=== PATIENT | male | born 1980 | race Caucasian/White ===

== ENCOUNTER 2018-01-06 11:42 | Inpatient (IN) | payer MEDICAID, SELFPAY ==
[2018-01-06] VITALS (13 sets, daily range): BP systolic 92–126; BP diastolic 56–81; BMI 39.5
[~2018-01-06] VITALS: Ht 182.9 cm; Wt 132.0 kg
--- NOTE | ~2018-01-06 | OP ---
PATIENT NAME: ZAC BHARDWAJ MEDICAL RECORD: [id number] :82 LOCATION:D.MS Doran2238 ADMISSION DATE:01/06/18 SURGEON: CASTILLO BAÑUELOS MD DATE OF OPERATION: 01/11/2018 PREOPERATIVE DIAGNOSES: 1. Perforated diverticulitis with abscess. 2. Hypercholesterolemia. 3. Morbid obesity. POSTOPERATIVE DIAGNOSES: 1. Perforated diverticulitis with abscess. 2. Hypercholesterolemia. 3. Morbid obesity. PROCEDURE: Diagnostic laparoscopy with drainage of interloop abscess and abdominal washout. SURGEON: Castillo Bañuelos MD DRESSMAKER OR TAILOR: Genie Boston APRN REPORT OF OPERATION: The patient's abdomen was prepped and draped in sterile fashion. A Veress needle was inserted in the left upper quadrant and the abdomen was insufflated. A 5-mm Visiport trocar was inserted in the right lateral abdomen. Once inside, we could see there were lot of adhesions present. Most of these were acute inflammatory adhesions, but there were some chronic adhesions to the anterior abdominal wall to a previous hernia repair with mesh. Another 5-mm trocar was placed in the right lower quadrant. With this, we were able to start teasing down some of these inflammatory adhesions. The adhesions were of the small bowel and the omentum up to the anterior abdominal wall. As we were able to free up these adhesions, we placed another 5-mm trocar in the right upper quadrant and a final one in the left lower quadrant. With this, we were able to eventually takedown all of the adhesions to the anterior abdominal wall. We then rolled back the omentum and started dissecting the small bowel off of the patient's left pericolic gutter. With doing this, we ran into a couple of pockets of pus. These pockets were irrigated out with normal saline. Once the pockets were cleaned out, then we freed up any adhesions of the small bowel that was present until we had good mobile small bowel and good mobile left and sigmoid colon. There were a lot of inflammatory changes to the bowel and a portion of the proximal small bowel was adherent to the abscess wall in the way that was making partial small bowel obstruction. This was freed up and laid in more anatomic position. We then approached the patient's pelvis and ran into another small pocket of abscess. This was irrigated out and some of the abscess wall was removed. Once we had everything irrigated out and reinspected the area to make sure there was no sign of any bile leakage, then the patient had an NG tube placed with large return of bilious content. The 15-Persian fluted Minh drains were inserted through the right and left lower quadrant incisions and placed in the pericolic gutters and pelvis. These were sutured into place with 2-0 Prolenes. At this point, the ports and insufflation were then removed after the omentum had been laid back down over the abdominal cavity. The wounds were then irrigated out with normal saline and infused with 10 mL of 0.25% Marcaine with epinephrine. The skin incisions were all closed with subcutaneous 5-0 Monocryl and dressed appropriately. OPERATIVE REPORT [id number] ZAC BHARDWAJ COMPLICATIONS: None. CONDITION: Stable. ANESTHESIA: General endotracheal and local. BLOOD LOSS: 100 mL. TRANSINT:[id number] Voice Confirmation ID: [id number] DOCUMENT ID: [id number] CASTILLO BAÑUELOS MD at 0914 CC: [id number] DICTATION DATE: 01/11/18 1519 RAIL DETECTOR CAR OPERATOR: 01/11/18 1629 ADM IN [facility] [address] [place] [address]
--- NOTE | ~2018-01-06 | MORECARE ---
CASE MANAGEMENT DISCHARGE SUMMARY PATIENT: ZAC BHARDWAJ UNIT: [id number] ADM DATE: 01/06/18 AGE: 37 : [birth year] SEX: M ROOM/BED: D.2238 AUTHOR: JAIDENDOC PHYSICIAN: REFERRING PHYSICIAN: FELI BAÑUELOS MD DATE OF SERVICE: 01/25/18 Discharge Plan Patient Name: ZAC BHARDWAJ Facility: [facility]:[place] : 1980 Planned Disposition: Acute Care Hospital Anticipated Discharge Date: Discharge Date: Expected LOS: Initial Reviewer: [email or web address] Initial Review Date: 01/06/2018 Generated: 01/25/18 1:06 pm Comments DCP- Discharge Planning Updated by [email or web address]: Debo Matt on 01/25/18 11:[address] Patient Name: ZAC BHARDWAJ Admission Status: ER Accout number: [id number] Admission Date: 01-06-2018 : 1980 Admission Diagnosis:DVTRCLI OF LG INT W/O PERFORATION OR ABSCESS W/O BLEEDI Attending: FELI BAÑUELOS Current LOS: 19 Anticipated DC Date: Planned Disposition: Acute Care Hospital Primary [facility] [employer] [facility] Discharge Planning Comments: [facility] IN PHARMACY GAVE PERMISSION TO DISPENSE 28 FLUSHES TO PATIENT AT DISCHARGE IN ORDER TO FLUSH DRAIN. 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 NO OTHER NEEDS NOTED. CM WILL FOLLOW AND ASSIST NEEDED. Compressor Assembler: Debo Matt DCP- Discharge Planning Updated by [id number]: Kusum Chiang on 01/11/18 8:[address] Dr. Bañuelos and he states that [facility] did not accept his transfer. CM will continue to follow and assist with discharge planning/needs. DCP- Discharge Planning Updated by [id number]: Kusum Chiang on 01/10/18 3:[address] Patient Name: ZAC BHARDWAJ Admission Status: ER Accout number: [id number] Admission Date: 01-06-2018 : 1980 Admission Diagnosis:DVTRCLI OF LG INT W/O PERFORATION OR ABSCESS W/O BLEEDI Attending: EDDA, EPISCOPAL Current LOS: 4 Anticipated DC Date: Planned Disposition: Acute Care Hospital [facility] [place] Discharge Planning Comments: Met with patient per his and his fianc?e's request. States he was at [facility] for the last 30 days for alcohol rehab. States he was at the end of his 30 days when he became sick and came to the hospital. States he wants to go to [facility] in [facility] to his surgeon, Dr. Ugarte. States he wants to be transferred. I read him the note from the ER doctor and also the note from Dr. Bañuelos concerning this matter. Nidia, fijett?e, states they have already talked to Dr. Ugarte in [facility] and he is willing to accept him. I did explain that this is considered a lateral move and insurance may not pay for an ambulance ride or the hospital may not accept him since it is not a higher level of care. Nidia laughed and states "I've never heard of that before." States they will still like me to call Dr. Bañuelos for a transfer. Dr Bañuelos called and he states we may call transfer center and start the process. I called [facility] and spoke with Tj. I told him the specifics of [facility] in [facility] ([place]) and to Dr. Ugarte. Face sheet faxed to them. CM will continue to follow and assist with discharge planning/needs. Compressor Assembler: Kusum Chiang DCP- Discharge Planning Updated by [email or web address]: Adrienne Dennison on 01/09/18 7:[address] LATE ENTRY 4336 PRIMARY NURSE ADVISED CM THAT THE PATIENT WANTS TO BE TRANSFERED TO [facility] IN [place]. HIS SURGEON WHO HAS FOLLOWED HIM SINCE 1999 IS AT THAT SITE. NURSE STATES DR BAÑUELOS SPOKE WITH THE PATIENT AND HIS FAMILY AND IS AWARE OF REQUEST. NO ORDERS TO FACILITATE TRANSFER. CM AND PRIMARY NURSE VISITED WITH THE PATIENT. NO FAMILY IS AT THE BEDSIDE. PATIENT CONFIRMS THAT IS HIS REQUEST. DR UGARTE HAS FOLLOWED HIM AND PERFORMED HIS PREVIOUS SURGERIES. DR BAÑUELOS WOULD LIKE TO SEE IF HE STABLIZE THE PATIENT TO DISCHARGE HIM TO F/U WITH HIS MD. PCP- DR MYRICK SURGEON- DR UGARTE. HIS ABDOMEN IS QUITE DISTENDED. PAIN CONTROL IS AN ISSUE. HAS NASAL O2 AT 2/L WITH O2 SATS IN LOW 90'S. NOTED INCREASED HR 9/29 AND 01/09. TELEMETRY MONITORING. EKG. REPORTEDLY NO BM'S NO FLATUS. SEEMED A LITTLE RESTLESS/ ANXIOUS. ADVISED HIM CM WOULD FOLLOW TO ASSIST. DCPIA - Discharge Planning Initial Assessment Updated by [email or web address]: Kusumkenneth Chiang on 01/10/18 4:29 pm * Is the patient Alert and Oriented? Yes * PCP Dr. Rowe is PCP Dr. Ugarte is surgeon * Preadmission Environment Acute Inpatient Rehab * Facility Name [facility] [phone] * ADLs Independent * Equipment Other * List name and contact numbers for known caregivers / representatives who currently or will assist patient after discharge: Nidia siddiqui?e - [phone] * Verbal permission to speak to the caregivers and representatives has been obtained from the patient. Yes * Community resources currently utilized None * Additional services required to return to the preadmission environment? No * Can the patient safely return to the preadmission environment? Yes * Has this patient been hospitalized within the prior 30 days at any hospital? No Last DP export: 01/11/18 8:14 a Patient Name: ZAC BHARDWAJ Page 40056 at 1206 All edits/amendments must be made on the electronic document DICTATION DATE: 01/25/181204 PAPER SALES MANAGER: JASON 01/25/181204 RPT#: [id number] DC DATE: STATUS: ADM IN [facility] [address] [place] [address] END OF REPORT
--- NOTE | ~2018-01-06 | MORECARE ---
CASE MANAGEMENT DISCHARGE SUMMARY PATIENT: ZAC BHARDWAJ UNIT: [id number] ADM DATE: 01/06/18 AGE: 37 : [birth year] SEX: M ROOM/BED: D.2238 AUTHOR: JAIDENDOC PHYSICIAN: REFERRING PHYSICIAN: FELI BAÑUELOS MD DATE OF SERVICE: 01/27/18 Discharge Plan Patient Name: ZAC BHARDWAJ Facility: [facility]:[place] : 1980 Planned Disposition: Home Anticipated Discharge Date: 01/25/18 Discharge Date: 01/25/2018 Expected LOS: 19 Initial Reviewer: [email or web address] Initial Review Date: 01/06/2018 Generated: 01/27/18 4:38 pm Comments DCP- Discharge Planning Updated by [email or web address]: Debo Matt on 01/25/18 11:[address] Patient Name: ZAC BHARDWAJ Admission Status: ER Accout number: [id number] Admission Date: 01-06-2018 : 1980 Admission Diagnosis:DVTRCLI OF LG INT W/O PERFORATION OR ABSCESS W/O BLEEDI Attending: FELI BAÑUELOS Current LOS: 19 Anticipated DC Date: Planned Disposition: Acute Care Hospital Primary Insurance: [facility] OPTIONS [facility] Discharge Planning Comments: [facility] IN PH[facility]ACY GAVE PERMISSION TO DISPENSE 28 FLUSHES TO PATIENT AT DISCHARGE IN ORDER TO FLUSH DRAIN. 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 NO OTHER NEEDS NOTED. CM WILL FOLLOW AND ASSIST NEEDED. Process Control Engineer: Debo Matt DCP- Discharge Planning Updated by [email or web address]: Kusum Chiang on 01/11/18 8:[address]. Bañuelos and he states that [facility] did not accept his transfer. CM will continue to follow and assist with discharge planning/needs. DCP- Discharge Planning Updated by [email or web address]: Kusum Chiang on 01/10/18 3:[address] Patient Name: ZAC BHARDWAJ Admission Status: ER Accout number: [id number] Admission Date: 01-06-2018 : 1980 Admission Diagnosis:DVTRCLI OF LG INT W/O PERFORATION OR ABSCESS W/O BLEEDI Attending: FELI BAÑUELOS Current LOS: 4 Anticipated DC Date: Planned Disposition: Acute Care Hospital [facility] [place] Discharge Planning Comments: Met with patient per his and his fianc?e's request. States he was at [facility] for the last 30 days for alcohol rehab. States he was at the end of his 30 days when he became sick and came to the hospital. States he wants to go to [facility] in [facility] to his surgeon, Dr. Ugarte. States he wants to be transferred. I read him the note from the ER doctor and also the note from Dr. Bañuelos concerning this matter. Nidia, fijett?e, states they have already talked to Dr. Ugarte in [facility] and he is willing to accept him. I did explain that this is considered a lateral move and insurance may not pay for an ambulance ride or the hospital may not accept him since it is not a higher level of care. Nidia laughed and states "I've never heard of that before." States they will still like me to call Dr. Bañuelos for a transfer. Dr Bañuelos called and he states we may call transfer center and start the process. I called [facility] and spoke with Tj. I told him the specifics of [facility] in [facility] ([place]) and to Dr. Ugarte. Face sheet faxed to them. CM will continue to follow and assist with discharge planning/needs. Process Control Engineer: Kusum Chiang DCP- Discharge Planning Updated by [id number]: Adrienne Dennison on 01/09/18 7:[address] LATE ENTRY 8097 PRIMARY NURSE ADVISED CM THAT THE PATIENT WANTS TO BE TRANSFERED TO [facility] IN [place]. HIS SURGEON WHO HAS FOLLOWED HIM SINCE 1999 IS AT THAT SITE. NURSE STATES DR BAÑUELOS SPOKE WITH THE PATIENT AND HIS FAMILY AND IS AWARE OF REQUEST. NO ORDERS TO FACILITATE TRANSFER. CM AND PRIMARY NURSE VISITED WITH THE PATIENT. NO FAMILY IS AT THE BEDSIDE. PATIENT CONFIRMS THAT IS HIS REQUEST. DR UGARTE HAS FOLLOWED HIM AND PERFORMED HIS PREVIOUS SURGERIES. DR BAÑUELOS WOULD LIKE TO SEE IF HE STABLIZE THE PATIENT TO DISCHARGE HIM TO F/U WITH HIS MD. PCP- DR MYRICK SURGEON- DR UGARTE. HIS ABDOMEN IS QUITE DISTENDED. PAIN CONTROL IS AN ISSUE. HAS NASAL O2 AT 2/L WITH O2 SATS IN LOW 90'S. NOTED INCREASED HR 01/08 AND 01/09. TELEMETRY MONITORING. EKG. REPORTEDLY NO BM'S NO FLATUS. SEEMED A LITTLE RESTLESS/ ANXIOUS. ADVISED HIM CM WOULD FOLLOW TO ASSIST. DCPIA - Discharge Planning Initial Assessment Updated by [email or web address]: Kusum Champagnejes on 01/10/18 4:29 pm * Is the patient Alert and Oriented? Yes * PCP Dr. Rowe is PCP Dr. Ugarte is surgeon * Preadmission Environment Acute Inpatient Rehab * Facility Name [facility] [phone] * ADLs Independent * Equipment Other * List name and contact numbers for known caregivers / representatives who currently or will assist patient after discharge: Nidia siddiqui?e - [phone] * Verbal permission to speak to the caregivers and representatives has been obtained from the patient. Yes * Community resources currently utilized None * Additional services required to return to the preadmission environment? No * Can the patient safely return to the preadmission environment? Yes * Has this patient been hospitalized within the prior 30 days at any hospital? No Last DP export: 01/25/18 11:06 Patient Name: ZAC BHARDWAJ Page 47397 at 1538 All edits/amendments must be made on the electronic document DICTATION DATE: 01/27/181537 PUTTY GLAZER: JASON 01/27/181537 RPT#: [id number] DC DATE:01/25/18 STATUS: DIS IN [facility] [address] [place] [address] END OF REPORT
--- NOTE | ~2018-01-06 | HEMODYNAMI ---
PATIENT:ZAC BHARDWAJ MEDICAL RECORD: [id number] : [birth year] LOCATION:AndreeaKS D.2238 ADMISSION DATE: 01/06/18 Generatedon:01/24/201810:35 Patient name: ZAC BHARDWAJ Patient #: [id number] SSN: : 1980 Date of study: 01/24/2018 Page: Of Hemodynamic Procedure Report Patient Data Patient Demographics Procedure consent was obtained First Name: ZAC Gender: Male Last Name: [place] : 1980 Patient #: [id number] Age: 37 year(s) Race: Unknown Additional ID: [id number] Contact details Address: [address] [place] [address] RO[address] State: [place] City: [place] Zip code: [address] Past Medical History Allergies Allergen Reaction Date Comments Reported Natural rubber 01/24/2018 and latex Admission Admission Data Admission Date: 01/06/2018 Admission Time: 14:43 Room #: D.2238 Height (in.): 72 BSA: 2.49 (m2) Height (cm.): 182.88 BMI: 39.33 (kg/m2) Weight (lbs.): 290 Weight (kg.): 131.54 Procedure Procedure Types Cath Procedure Peripheral Cath Diagnostic Procedure Service Advisor Peripheral Procedures Abscess Abscess Drain Injection Procedure Description Procedure Date Procedure Date: 01/24/2018 Procedure Start Time: 10:27 Procedure Staff Name Function Leobardo Chapman MD Performing Physician Sara Salmon RT Cat Hooker Meseret Soni RN Nurse Juan Carlos Wilburn RT Scrub Procedure Data Cath Procedure Fluoroscopy Diagnostic fluoroscopy Total fluoroscopy Time: 0.8 time: 0.8 min min Diagnostic fluoroscopy Total fluoroscopy dose: 210 dose: 210 mGy mGy Contrast Material Contrast Material Type Amount (ml) Isovue 300 20 Hemodynamics Rest BSA: 2.49 (m2) O2 Consumption: Estimated: 338.64 (ml/min) O2 Consumption indexed : Estimated:136 (ml/min/m) Pre Cath Intra NCS Post Cath Procedure Log Time Note 9:31:58 Patient Height : 72 inches 9:32:04 Patient Weight : 290 lbs 10:08:33 Time tracking: Regular hours (M-F 7:00 - 5:00) 10:09:00 Plan of Care:Hemodynamics will remain stable., Cardiac rhythm will remain stable., Comfort level will be maintained., Respiratory function will remain adequate., Patient/ family verbilizes understanding of procedure., Procedure tolerated without complication., Recovers from procedure without complications.. 10:09:12 Patient received from Med/Surg to IR Alert and oriented. Tansferred to table in Supine position. 10:09:18 Signed procedure consent form obtained from patient. 10:09:24 H&P Date Dictated: 01/24/2018 Within 30 days and on chart.. 10::26 Pre-procedure instructions explained to patient. 10::27 Pre-op teaching completed and patient verbalized understanding. 10:09:29 Family unavailable. 10:09:32 Patient NPO since Midnight. 10:10:19 Patient allergic to Natural rubber and latex 10:10:24 Is the patient allergic to Iodine/contrast media? No. 10:10:28 - 10:10:36 Use device set IR Diagnostic 10:10:39 Sterile Angiographic Pack opened to sterile field. 10:10:40 Bag Decanter (2002) opened to sterile field. 10:26:06 - 10:26:12 Physician arrived 10:26:33 --------ALL STOP TIME OUT------ 10:26:34 Final Timeout: patient, procedure, and site verified with staff and physician. All members of the team are in agreement. 10:27:06 Procedure started. 10:27:07 Full Disclosure recording started 10:32:45 Procedure ended.(Physican Out) 10:34:41 Fluoroscopy time 00.80 minutes. 10:34:46 Fluoroscopy dose: 210 mGy 10:34:46 Flurop Dose total: 210 10:34:51 Contrast amount:Isovue 300 20ml. 10:34:53 Procedure and supply charges have been captured, reviewed, submitted an d are correct. 10:34:59 Report given to Med/Surg. Device Usage Item Name Manufacture Quantity Catalog Hospital Part Current Minimal Lot# / Number Charge Number Stock Stock Serial# Code Sterile Cardinal 1 [id number] Angiographic Health Pack Bag Decanter Microtek 1 [id number] () [employer] Signature Audit Telford Stage Time Signature Unsigned Intra-Procedure 01/24/2018 Sara Salmon 10:35:28 AM RT(R) [facility] [address] [place] [address]
--- NOTE | ~2018-01-06 | MORECARE ---
CASE MANAGEMENT DISCHARGE SUMMARY PATIENT: ZAC BHARDWAJ UNIT: [id number] ADM DATE: 01/06/18 AGE: 37 : 82 SEX: M ROOM/BED: D.2238 AUTHOR: JAIDENDOC PHYSICIAN: REFERRING PHYSICIAN: FELI BAÑUELOS MD DATE OF SERVICE: 01/31/18 Discharge Plan Patient Name: ZAC BHARDWAJ Facility: [facility]:[place] : 1980 Planned Disposition: Home Anticipated Discharge Date: 01/25/18 Discharge Date: 01/25/2018 Expected LOS: 19 Initial Reviewer: [email or web address] Initial Review Date: 01/06/2018 Generated: 01/31/18 9:17 am Comments DCP- Discharge Planning Updated by [email or web address]: Debo Matt on 01/25/18 11:[address] Patient Name: ZAC BHARDWAJ Admission Status: ER Accout number: [id number] Admission Date: 01-06-2018 : 1980 Admission Diagnosis:DVTRCLI OF LG INT W/O PERFORATION OR ABSCESS W/O BLEEDI Attending: FELI BAÑUELOS Current LOS: 19 Anticipated DC Date: Planned Disposition: Acute Care Hospital Primary Insurance: [facility] [employer] [facility] OPTIONS [facility] Discharge Planning Comments: [facility] IN PHARMACY GAVE PERMISSION TO DISPENSE 28 FLUSHES TO PATIENT AT DISCHARGE IN ORDER TO FLUSH DRAIN. 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 NO OTHER NEEDS NOTED. CM WILL FOLLOW AND ASSIST NEEDED. Electric Motor Tester Assembler: Debo Matt DCP- Discharge Planning Updated by [id number]: Kusum Chiang on 01/11/18 8:[address]. Bañuelos and he states that [facility] did not accept his transfer. CM will continue to follow and assist with discharge planning/needs. DCP- Discharge Planning Updated by [email or web address]: Kusum Chiang on 01/10/18 3:[address] Patient Name: ZAC BHARDWAJ Admission Status: ER Accout number: [id number] Admission Date: 01-06-2018 : 1980 Admission Diagnosis:DVTRCLI OF LG INT W/O PERFORATION OR ABSCESS W/O BLEEDI Attending: FELI BAÑUELOS Current LOS: 4 Anticipated DC Date: Planned Disposition: Acute Care Hospital Primary Insurance: [facility] OPTIONS [facility] Discharge Planning Comments: Met with patient per his and his fianc?e's request. States he was at [facility] for the last 30 days for alcohol rehab. States he was at the end of his 30 days when he became sick and came to the hospital. States he wants to go to [facility] in [facility] to his surgeon, Dr. Ugarte. States he wants to be transferred. I read him the note from the ER doctor and also the note from Dr. Bañuelos concerning this matter. Nidia, fijett?e, states they have already talked to Dr. Ugarte in [facility] and he is willing to accept him. I did explain that this is considered a lateral move and insurance may not pay for an ambulance ride or the hospital may not accept him since it is not a higher level of care. Nidia laughed and states "I've never heard of that before." States they will still like me to call Dr. Bañuelos for a transfer. Dr Bañuelos called and he states we may call transfer center and start the process. I called [facility] and spoke with Tj. I told him the specifics of [facility] in [facility] ([place]) and to Dr. Ugarte. Face sheet faxed to them. CM will continue to follow and assist with discharge planning/needs. Electric Motor Tester Assembler: Kusum Chiang DCP- Discharge Planning Updated by [email or web address]: Adrienne Dennison on 01/09/18 7:[address] LATE ENTRY 6194 PRIMARY NURSE ADVISED CM THAT THE PATIENT WANTS TO BE TRANSFERED TO [facility] IN [place]. HIS SURGEON WHO HAS FOLLOWED HIM SINCE 1999 IS AT THAT SITE. NURSE STATES DR BAÑUELOS SPOKE WITH THE PATIENT AND HIS FAMILY AND IS AWARE OF REQUEST. NO ORDERS TO FACILITATE TRANSFER. CM AND PRIMARY NURSE VISITED WITH THE PATIENT. NO FAMILY IS AT THE BEDSIDE. PATIENT CONFIRMS THAT IS HIS REQUEST. DR UGARTE HAS FOLLOWED HIM AND PERFORMED HIS PREVIOUS SURGERIES. DR BAÑUELOS WOULD LIKE TO SEE IF HE STABLIZE THE PATIENT TO DISCHARGE HIM TO F/U WITH HIS MD. PCP- DR MYRICK SURGEON- DR UGARTE. HIS ABDOMEN IS QUITE DISTENDED. PAIN CONTROL IS AN ISSUE. HAS NASAL O2 AT 2/L WITH O2 SATS IN LOW 90'S. NOTED INCREASED HR 01/08 AND 01/09. TELEMETRY MONITORING. EKG. REPORTEDLY NO BM'S NO FLATUS. SEEMED A LITTLE RESTLESS/ ANXIOUS. ADVISED HIM CM WOULD FOLLOW TO ASSIST. DCPIA - Discharge Planning Initial Assessment Updated by [email or web address]: Kusum Champagnejes on 01/10/18 4:29 pm * Is the patient Alert and Oriented? Yes * PCP Dr. Rowe is PCP Dr. Ugarte is surgeon * Preadmission Environment Acute Inpatient Rehab * Facility Name [facility] [phone] * ADLs Independent * Equipment Other * List name and contact numbers for known caregivers / representatives who currently or will assist patient after discharge: Nidia siddiqui?e - [phone] * Verbal permission to speak to the caregivers and representatives has been obtained from the patient. Yes * Community resources currently utilized None * Additional services required to return to the preadmission environment? No * Can the patient safely return to the preadmission environment? Yes * Has this patient been hospitalized within the prior 30 days at any hospital? No Last DP export: 01/27/18 2:38 Patient Name: ZAC BHARDWAJ Page 16246 at 0817 All edits/amendments must be made on the electronic document DICTATION DATE: 01/31/18816 POULTRY SCALDER: JASON 01/31/18816 RPT#: [id number] DC DATE:01/25/18 STATUS: DIS IN [facility] [address] [place] [address] END OF REPORT
[2018-01-06] MEDS ORDERED: LIPITOR20 MG PO (11:46)
[2018-01-06] MEDS ORDERED: RANITIDINE HCL150 M1 PO (11:48)
[2018-01-06] MEDS ORDERED: ATARAX 25 MG TA25 MG PO (11:48)
[2018-01-06] MEDS ORDERED: FOLIC ACID1 MG PO (11:49)
[2018-01-06] MEDS ORDERED: SEROQUEL300 MG PO (11:49)
[2018-01-06] MEDS ORDERED: VITAMIN B-150 MG PO (11:49)
[2018-01-06] MEDS ORDERED: ZYLOPRIM300 MG PO (11:50)
[2018-01-06] MEDS ORDERED: AZELASTINE137 MCG/0. NASAL (11:51)
[2018-01-06] MEDS ORDERED: BUSPAR10 MG PO (11:51)
[2018-01-06 12:54] LABS: BASOPHILS 0 % (0-2); EOSINOPHILS 0 % (0-7); HEMATOCRIT 45.8 % (42.0-54.0); HEMOGLOBIN 16.3 g/dL (13.5-17.5); IMMATURE GRANULOCYTES 0.3 % (0-5); LYMPHOCYTES 2.8 % (15-50); MCH 33.2 pg (26.0-34.0); MCHC 35.6 g/dL (31.0-37.0); MCV 93.3 fL (80.0-100.0); MEAN PLATELET VOLUME 10.6 fL (7.4-10.4); MONOCYTES 7.7 % (2-11); NEUTROPHILS 89.2 % (40-80); PLATELET COUNT 196 10x3/uL (130-400); RBC 4.91 10x6/uL (4.20-6.10); RDW 13.1 % (11.5-14.5); WBC 11.5 10x3/uL (4.8-10.8)
[2018-01-06 13:07] LABS: ALBUMIN 3.2 g/dL (3.4-5.0); ANION GAP 16.7 mmol/L (8-16); BILIRUBIN - TOTAL 1.15 mg/dL (0.2-1.3); CARBON DIOXIDE 22.1 mmol/L (21.0-32.0); CREATININE - SERUM 1.7 mg/dL (0.6-1.3); POTASSIUM - SERUM 3.8 mmol/L (3.5-5.1); PROTEIN - SERUM 8.1 g/dL (6.4-8.2)
[2018-01-06 16:32] LABS: APPEARANCE CLEAR (CLEAR); BILIRUBIN 1+ (NEGATIVE); COLOR DK YELLOW (YELLOW); GLUCOSE NEGATIVE (NEGATIVE); KETONE NEGATIVE (NEGATIVE); NITRITE NEGATIVE (NEGATIVE); PROTEIN 1+ mg/dL (NEGATIVE); WHITE CELLS - URINE 0-5 /hpf (0-5)
[2018-01-06 16:33] LABS: BACTERIA FEW /hpf (NONE SEEN); HYALINE CAST 0-5 /lpf (NONE SEEN)
[2018-01-07 04:00] VITALS: BP 118/75
[2018-01-07 05:58] LABS: ALBUMIN 2.4 g/dL (3.4-5.0); CALCIUM 8.5 mg/dL (8.5-10.1); CARBON DIOXIDE 22.1 mmol/L (21.0-32.0); CHLORIDE - SERUM 99 mmol/L (98-107); GLUCOSE 127 mg/dL (74-106); MAGNESIUM - SERUM 1.8 mg/dL (1.8-2.4); POTASSIUM - SERUM 3.7 mmol/L (3.5-5.1); SODIUM 131 mmol/L (136-145); eGFR NON AFRICAN AMERICAN 80 mL/min (90-120)
[2018-01-07 06:04] LABS: CALC OSMOLALITY 267 mosm/kg (275-300); CREATININE - SERUM 1.1 mg/dL (0.6-1.3); UREA NITROGEN 20 mg/dL (7-18)
[2018-01-07 06:13] LABS: BASOPHILS 0.1 % (0-2); EOSINOPHILS 0.1 % (0-7); HEMATOCRIT 42.1 % (42.0-54.0); HEMOGLOBIN 14.8 g/dL (13.5-17.5); IMMATURE GRANULOCYTES 0.2 % (0-5); LYMPHOCYTES 4.4 % (15-50); MCH 32.7 pg (26.0-34.0); MCHC 35.2 g/dL (31.0-37.0); MCV 93.1 fL (80.0-100.0); MEAN PLATELET VOLUME 11.3 fL (7.4-10.4); MONOCYTES 6.6 % (2-11); NEUTROPHILS 88.6 % (40-80); PLATELET COUNT 204 10x3/uL (130-400); RBC 4.52 10x6/uL (4.20-6.10); RDW 13.1 % (11.5-14.5); WBC 9.9 10x3/uL (4.8-10.8)
[2018-01-07 06:30] LABS: ALKALINE PHOSPHATASE 65 U/L (46-116); ALT (SGPT) 18 U/L (10-68); BILIRUBIN - TOTAL 0.85 mg/dL (0.2-1.3); PHOSPHOROUS 2.7 mg/dL (2.5-4.9); PROTEIN - SERUM 6.8 g/dL (6.4-8.2)
[2018-01-07 08:15] VITALS: BP 107/67
[2018-01-07 12:25] VITALS: BMI 39.5
[2018-01-07 13:20] VITALS: BP 109/70
[2018-01-07 16:21] VITALS: BP 118/72
[2018-01-07 23:06] VITALS: BP 117/64
[2018-01-08 04:54] VITALS: BP 125/76
[2018-01-08 07:16] LABS: BASOPHILS 0 % (0-2); EOSINOPHILS 0.4 % (0-7); HEMOGLOBIN 12.3 g/dL (13.5-17.5); IMMATURE GRANULOCYTES 0.4 % (0-5); LYMPHOCYTES 5.2 % (15-50); MCH 31.9 pg (26.0-34.0); MCHC 34.2 g/dL (31.0-37.0); MCV 93.5 fL (80.0-100.0); MEAN PLATELET VOLUME 10.7 fL (7.4-10.4); PLATELET COUNT 154 10x3/uL (130-400); RBC 3.85 10x6/uL (4.20-6.10); RDW 13.4 % (11.5-14.5); WBC 8.2 10x3/uL (4.8-10.8)
[2018-01-08 07:37] LABS: CALC OSMOLALITY 269 mosm/kg (275-300); CALCIUM 8.4 mg/dL (8.5-10.1); CARBON DIOXIDE 22.8 mmol/L (21.0-32.0); CHLORIDE - SERUM 101 mmol/L (98-107); GLUCOSE 90 mg/dL (74-106); POTASSIUM - SERUM 3.4 mmol/L (3.5-5.1); SODIUM 134 mmol/L (136-145); UREA NITROGEN 19 mg/dL (7-18)
[2018-01-08 07:38] LABS: CREATININE - SERUM 0.8 mg/dL (0.6-1.3); eGFR NON AFRICAN AMERICAN > 90 mL/min (90-120)
[2018-01-08 08:28] VITALS: BP 126/73
[2018-01-08 12:09] VITALS: BP 120/70
[2018-01-08 21:47] VITALS: BP 137/83
[2018-01-09 06:13] VITALS: BP 141/79
[2018-01-09 06:28] LABS: BASOPHILS 0.1 % (0-2); EOSINOPHILS 0.6 % (0-7); HEMATOCRIT 35.3 % (42.0-54.0); IMMATURE GRANULOCYTES 0.5 % (0-5); LYMPHOCYTES 4.7 % (15-50); MCH 31.9 pg (26.0-34.0); MCV 93.9 fL (80.0-100.0); MEAN PLATELET VOLUME 10.8 fL (7.4-10.4); MONOCYTES 7.1 % (2-11); PLATELET COUNT 171 10x3/uL (130-400); RBC 3.76 10x6/uL (4.20-6.10); RDW 13.7 % (11.5-14.5)
[2018-01-09 06:30] LABS: WBC 12.9 10x3/uL (4.8-10.8)
[2018-01-09 06:44] LABS: CALC OSMOLALITY 273 mosm/kg (275-300); CALCIUM 8.6 mg/dL (8.5-10.1); CARBON DIOXIDE 25.5 mmol/L (21.0-32.0); CHLORIDE - SERUM 104 mmol/L (98-107); CREATININE - SERUM 0.7 mg/dL (0.6-1.3); GLUCOSE 109 mg/dL (74-106); POTASSIUM - SERUM 3.5 mmol/L (3.5-5.1); SODIUM 137 mmol/L (136-145); eGFR NON AFRICAN AMERICAN > 90 mL/min (90-120)
[2018-01-09 06:47] LABS: UREA NITROGEN 10 mg/dL (7-18)
[2018-01-09 08:48] VITALS: BP 131/86
[2018-01-09 15:26] VITALS: BP 150/87
[2018-01-09 22:36] VITALS: BP 124/76
[2018-01-09 22:41] VITALS: BP 124/76
[2018-01-10 03:54] VITALS: BP 120/74
[2018-01-10 06:37] LABS: BASOPHILS 0.1 % (0-2); HEMATOCRIT 34.8 % (42.0-54.0); HEMOGLOBIN 11.9 g/dL (13.5-17.5); IMMATURE GRANULOCYTES 1.3 % (0-5); LYMPHOCYTES 6.4 % (15-50); MCH 31.8 pg (26.0-34.0); MCHC 34.2 g/dL (31.0-37.0); MEAN PLATELET VOLUME 10.5 fL (7.4-10.4); NEUTROPHILS 82.2 % (40-80); PLATELET COUNT 184 10x3/uL (130-400); RBC 3.74 10x6/uL (4.20-6.10); RDW 13.9 % (11.5-14.5); WBC 13.4 10x3/uL (4.8-10.8)
[2018-01-10 06:53] LABS: CALC OSMOLALITY 277 mosm/kg (275-300); CALCIUM 8.4 mg/dL (8.5-10.1); CHLORIDE - SERUM 105 mmol/L (98-107); CREATININE - SERUM 0.6 mg/dL (0.6-1.3); GLUCOSE 106 mg/dL (74-106); POTASSIUM - SERUM 3.4 mmol/L (3.5-5.1); SODIUM 140 mmol/L (136-145); UREA NITROGEN 10 mg/dL (7-18); eGFR NON AFRICAN AMERICAN > 90 mL/min (90-120)
[2018-01-10 07:06] LABS: CARBON DIOXIDE 26.2 mmol/L (21.0-32.0)
[2018-01-10 08:08] VITALS: BP 165/84
[2018-01-10 12:12] VITALS: BP 140/87
[2018-01-10 16:30] VITALS: BP 130/72
[2018-01-10 20:00] VITALS: BP 138/54
[2018-01-11 04:00] VITALS: BP 112/68
[2018-01-11 05:17] LABS: BASOPHILS 0.2 % (0-2); EOSINOPHILS 0.8 % (0-7); HEMATOCRIT 34.7 % (42.0-54.0); IMMATURE GRANULOCYTES 1.9 % (0-5); LYMPHOCYTES 7.4 % (15-50); MCH 32.2 pg (26.0-34.0); MCHC 34.6 g/dL (31.0-37.0); MEAN PLATELET VOLUME 10.5 fL (7.4-10.4); MONOCYTES 8.8 % (2-11); NEUTROPHILS 80.9 % (40-80); PLATELET COUNT 211 10x3/uL (130-400); RBC 3.73 10x6/uL (4.20-6.10); WBC 16.3 10x3/uL (4.8-10.8)
[2018-01-11 05:33] LABS: CALC OSMOLALITY 276 mosm/kg (275-300); CALCIUM 8.3 mg/dL (8.5-10.1); CARBON DIOXIDE 28.8 mmol/L (21.0-32.0); CHLORIDE - SERUM 104 mmol/L (98-107); CREATININE - SERUM 0.6 mg/dL (0.6-1.3); GLUCOSE 103 mg/dL (74-106); POTASSIUM - SERUM 3.3 mmol/L (3.5-5.1); SODIUM 140 mmol/L (136-145); eGFR NON AFRICAN AMERICAN > 90 mL/min (90-120)
[2018-01-11 05:35] LABS: UREA NITROGEN 7 mg/dL (7-18)
[2018-01-11 09:39] VITALS: BP 113/71
[2018-01-11 16:49] VITALS: BP 140/83
[2018-01-11 20:00] VITALS: BP 105/62
[2018-01-12] VITALS: BP 107/74
[2018-01-12 04:00] VITALS: BP 126/76
[2018-01-12 07:55] LABS: CALC OSMOLALITY 276 mosm/kg (275-300); CALCIUM 7.6 mg/dL (8.5-10.1); CARBON DIOXIDE 22.3 mmol/L (21.0-32.0); CHLORIDE - SERUM 106 mmol/L (98-107); CREATININE - SERUM 0.5 mg/dL (0.6-1.3); GLUCOSE 127 mg/dL (74-106); POTASSIUM - SERUM 4.4 mmol/L (3.5-5.1); SODIUM 138 mmol/L (136-145); UREA NITROGEN 10 mg/dL (7-18); eGFR NON AFRICAN AMERICAN > 90 mL/min (90-120)
[2018-01-12 07:57] LABS: HEMATOCRIT 37.9 % (42.0-54.0); HEMOGLOBIN 13.3 g/dL (13.5-17.5); LYMPHOCYTES 7.1 % (15-50); MCH 32.7 pg (26.0-34.0); MCHC 35.1 g/dL (31.0-37.0); MCV 93.1 fL (80.0-100.0); NEUTROPHILS 87.1 % (40-80); PLATELET COUNT 105 10x3/uL (130-400); RBC 4.07 10x6/uL (4.20-6.10); RDW 15.2 % (11.5-14.5); WBC 19.8 10x3/uL (4.8-10.8)
[2018-01-12 08:46] VITALS: BP 110/68
[2018-01-12 12:48] VITALS: BP 117/73
[2018-01-12 16:45] VITALS: BP 108/69
[2018-01-13 06:18] VITALS: BP 112/64
[2018-01-13 06:28] LABS: BASOPHILS 0.1 % (0-2); EOSINOPHILS 0.9 % (0-7); HEMATOCRIT 36.5 % (42.0-54.0); HEMOGLOBIN 12.4 g/dL (13.5-17.5); IMMATURE GRANULOCYTES 1.7 % (0-5); LYMPHOCYTES 7.6 % (15-50); MCV 94.1 fL (80.0-100.0); MEAN PLATELET VOLUME 10.1 fL (7.4-10.4); MONOCYTES 4.7 % (2-11); RBC 3.88 10x6/uL (4.20-6.10); RDW 14.3 % (11.5-14.5); WBC 19.8 10x3/uL (4.8-10.8)
[2018-01-13 06:39] LABS: PLATELET COUNT 284 10x3/uL (130-400)
[2018-01-13 06:59] LABS: CHLORIDE - SERUM 103 mmol/L (98-107); CREATININE - SERUM 0.6 mg/dL (0.6-1.3); GLUCOSE 93 mg/dL (74-106); SODIUM 140 mmol/L (136-145); eGFR NON AFRICAN AMERICAN > 90 mL/min (90-120)
[2018-01-13 07:02] LABS: CALC OSMOLALITY 276 mosm/kg (275-300); CARBON DIOXIDE 30.8 mmol/L (21.0-32.0); POTASSIUM - SERUM 3.3 mmol/L (3.5-5.1); UREA NITROGEN 7 mg/dL (7-18)
[2018-01-13 08:00] VITALS: BP 112/69
[2018-01-13 12:00] VITALS: BP 108/67
[2018-01-13 18:19] VITALS: BP 122/74
[2018-01-13 21:45] VITALS: BP 117/71
[2018-01-14 05:09] VITALS: BP 119/72
[2018-01-14 06:25] LABS: CALC OSMOLALITY 269 mosm/kg (275-300); CALCIUM 7.9 mg/dL (8.5-10.1); CARBON DIOXIDE 27.2 mmol/L (21.0-32.0); CHLORIDE - SERUM 102 mmol/L (98-107); CREATININE - SERUM 0.6 mg/dL (0.6-1.3); GLUCOSE 104 mg/dL (74-106); POTASSIUM - SERUM 3.5 mmol/L (3.5-5.1); SODIUM 136 mmol/L (136-145); UREA NITROGEN 7 mg/dL (7-18); eGFR NON AFRICAN AMERICAN > 90 mL/min (90-120)
[2018-01-14 06:26] LABS: HEMATOCRIT 34.7 % (42.0-54.0); HEMOGLOBIN 11.8 g/dL (13.5-17.5); MCH 31.6 pg (26.0-34.0); PLATELET COUNT 293 10x3/uL (130-400); RBC 3.73 10x6/uL (4.20-6.10); RDW 14.1 % (11.5-14.5); WBC 21.8 10x3/uL (4.8-10.8)
[2018-01-14 07:19] LABS: EOSINOPHILS 3 % (0-7); LYMPHOCYTES 4 % (15-50); MONOCYTES 6 % (2-11); NEUTROPHILS 83 % (40-80); PLATELET ESTIMATE NORMAL
[2018-01-14 08:14] VITALS: BP 104/65
[2018-01-14 11:56] VITALS: BP 122/76
[2018-01-14 20:00] VITALS: BP 122/76
[2018-01-15 04:00] VITALS: BP 121/74
[2018-01-15 05:38] LABS: BASOPHILS 0.1 % (0-2); EOSINOPHILS 0.9 % (0-7); HEMATOCRIT 35.4 % (42.0-54.0); IMMATURE GRANULOCYTES 0.9 % (0-5); LYMPHOCYTES 6.8 % (15-50); MCH 31.9 pg (26.0-34.0); MCHC 33.9 g/dL (31.0-37.0); MCV 94.1 fL (80.0-100.0); MEAN PLATELET VOLUME 9.8 fL (7.4-10.4); MONOCYTES 4.8 % (2-11); NEUTROPHILS 86.5 % (40-80); PLATELET COUNT 287 10x3/uL (130-400); RBC 3.76 10x6/uL (4.20-6.10); RDW 14.2 % (11.5-14.5); WBC 17.8 10x3/uL (4.8-10.8)
[2018-01-15 05:58] LABS: CALC OSMOLALITY 273 mosm/kg (275-300); CALCIUM 7.8 mg/dL (8.5-10.1); CARBON DIOXIDE 30.8 mmol/L (21.0-32.0); CHLORIDE - SERUM 101 mmol/L (98-107); CREATININE - SERUM 0.7 mg/dL (0.6-1.3); GLUCOSE 107 mg/dL (74-106); POTASSIUM - SERUM 3.9 mmol/L (3.5-5.1); SODIUM 138 mmol/L (136-145); UREA NITROGEN 7 mg/dL (7-18); eGFR NON AFRICAN AMERICAN > 90 mL/min (90-120)
[2018-01-15 19:58] VITALS: BP 102/60
[2018-01-16] VITALS: BP 129/76
[2018-01-16 02:53] LABS: BASOPHILS 0.1 % (0-2); HEMATOCRIT 32.5 % (42.0-54.0); HEMOGLOBIN 11.1 g/dL (13.5-17.5); IMMATURE GRANULOCYTES 0.8 % (0-5); LYMPHOCYTES 5.7 % (15-50); MCH 31.8 pg (26.0-34.0); MCHC 34.2 g/dL (31.0-37.0); MCV 93.1 fL (80.0-100.0); MEAN PLATELET VOLUME 10.1 fL (7.4-10.4); MONOCYTES 5.6 % (2-11); NEUTROPHILS 86.8 % (40-80); PLATELET COUNT 296 10x3/uL (130-400); RBC 3.49 10x6/uL (4.20-6.10); RDW 13.9 % (11.5-14.5); WBC 17.8 10x3/uL (4.8-10.8)
[2018-01-16 03:07] LABS: CALC OSMOLALITY 264 mosm/kg (275-300); CALCIUM 7.6 mg/dL (8.5-10.1); CARBON DIOXIDE 28.2 mmol/L (21.0-32.0); CHLORIDE - SERUM 100 mmol/L (98-107); CREATININE - SERUM 0.6 mg/dL (0.6-1.3); GLUCOSE 125 mg/dL (74-106); POTASSIUM - SERUM 3.8 mmol/L (3.5-5.1); SODIUM 133 mmol/L (136-145); UREA NITROGEN 8 mg/dL (7-18); eGFR NON AFRICAN AMERICAN > 90 mL/min (90-120)
[2018-01-16 04:00] VITALS: BP 116/76
[2018-01-16 09:42] VITALS: BP 128/72
[2018-01-16 12:00] VITALS: BP 145/80
[2018-01-16 16:00] VITALS: BP 136/74
[2018-01-16 21:11] VITALS: BP 124/70
[2018-01-17 06:04] LABS: BASOPHILS 0.1 % (0-2); EOSINOPHILS 1.6 % (0-7); HEMATOCRIT 29.7 % (42.0-54.0); IMMATURE GRANULOCYTES 0.6 % (0-5); LYMPHOCYTES 7.6 % (15-50); MCH 31.5 pg (26.0-34.0); MCHC 33.7 g/dL (31.0-37.0); MCV 93.7 fL (80.0-100.0); MEAN PLATELET VOLUME 9.9 fL (7.4-10.4); MONOCYTES 7.6 % (2-11); NEUTROPHILS 82.5 % (40-80); PLATELET COUNT 325 10x3/uL (130-400); RBC 3.17 10x6/uL (4.20-6.10); RDW 14.2 % (11.5-14.5); WBC 13.7 10x3/uL (4.8-10.8)
[2018-01-17 06:05] VITALS: BP 124/76
[2018-01-17 06:11] LABS: CALC OSMOLALITY 267 mosm/kg (275-300); CALCIUM 7.8 mg/dL (8.5-10.1); CARBON DIOXIDE 25.9 mmol/L (21.0-32.0); CHLORIDE - SERUM 100 mmol/L (98-107); CREATININE - SERUM 0.6 mg/dL (0.6-1.3); GLUCOSE 104 mg/dL (74-106); POTASSIUM - SERUM 3.9 mmol/L (3.5-5.1); SODIUM 135 mmol/L (136-145); UREA NITROGEN 7 mg/dL (7-18); eGFR NON AFRICAN AMERICAN > 90 mL/min (90-120)
[2018-01-17 08:38] VITALS: BP 115/62
[2018-01-17 12:50] VITALS: BP 152/81
[2018-01-17 16:34] VITALS: BP 152/83
[2018-01-17 21:01] VITALS: BP 112/66
[2018-01-18 05:52] VITALS: BP 126/75
[2018-01-18 05:57] LABS: BASOPHILS 0.2 % (0-2); EOSINOPHILS 1.3 % (0-7); HEMATOCRIT 28.8 % (42.0-54.0); IMMATURE GRANULOCYTES 0.4 % (0-5); LYMPHOCYTES 9.6 % (15-50); MCH 32.7 pg (26.0-34.0); MCHC 34.7 g/dL (31.0-37.0); MCV 94.1 fL (80.0-100.0); MEAN PLATELET VOLUME 9.6 fL (7.4-10.4); MONOCYTES 8.6 % (2-11); NEUTROPHILS 79.9 % (40-80); PLATELET COUNT 354 10x3/uL (130-400); RBC 3.06 10x6/uL (4.20-6.10); RDW 14.1 % (11.5-14.5); WBC 11.6 10x3/uL (4.8-10.8)
[2018-01-18 06:36] LABS: CALC OSMOLALITY 271 mosm/kg (275-300); CARBON DIOXIDE 28.5 mmol/L (21.0-32.0); CHLORIDE - SERUM 101 mmol/L (98-107); CREATININE - SERUM 0.5 mg/dL (0.6-1.3); GLUCOSE 122 mg/dL (74-106); SODIUM 137 mmol/L (136-145); eGFR NON AFRICAN AMERICAN > 90 mL/min (90-120)
[2018-01-18 06:37] LABS: UREA NITROGEN 4 mg/dL (7-18)
[2018-01-18 09:44] VITALS: BP 116/69
[2018-01-18 14:44] VITALS: BP 122/63
[2018-01-18 19:48] VITALS: Ht 182.9 cm; Wt 132.0 kg
[2018-01-18 20:24] LABS: APPEARANCE CLEAR (CLEAR); BILIRUBIN NEGATIVE (NEGATIVE); COLOR YELLOW (YELLOW); GLUCOSE NEGATIVE (NEGATIVE); KETONE NEGATIVE (NEGATIVE); NITRITE NEGATIVE (NEGATIVE); PROTEIN NEGATIVE (NEGATIVE); UROBILINOGEN NORMAL (NORMAL)
[2018-01-18 21:20] VITALS: BP 135/77
[2018-01-19 06:00] LABS: BASOPHILS 0.2 % (0-2); EOSINOPHILS 1.4 % (0-7); HEMATOCRIT 28.5 % (42.0-54.0); HEMOGLOBIN 9.5 g/dL (13.5-17.5); IMMATURE GRANULOCYTES 0.3 % (0-5); LYMPHOCYTES 11.1 % (15-50); MCH 31.7 pg (26.0-34.0); MCHC 33.3 g/dL (31.0-37.0); MEAN PLATELET VOLUME 9.9 fL (7.4-10.4); MONOCYTES 12.2 % (2-11); NEUTROPHILS 74.8 % (40-80); PLATELET COUNT 365 10x3/uL (130-400); RDW 14.2 % (11.5-14.5); WBC 11.3 10x3/uL (4.8-10.8)
[2018-01-19 06:15] LABS: CALC OSMOLALITY 270 mosm/kg (275-300); CARBON DIOXIDE 30.4 mmol/L (21.0-32.0); CHLORIDE - SERUM 101 mmol/L (98-107); CREATININE - SERUM 0.5 mg/dL (0.6-1.3); GLUCOSE 103 mg/dL (74-106); POTASSIUM - SERUM 3.7 mmol/L (3.5-5.1); SODIUM 137 mmol/L (136-145); UREA NITROGEN 3 mg/dL (7-18); eGFR NON AFRICAN AMERICAN > 90 mL/min (90-120)
[2018-01-19 06:26] VITALS: BP 115/65
[2018-01-19 09:19] VITALS: BP 120/71
[2018-01-19 09:53] LABS: APTT 37.5 SECONDS (22.8-39.4); INR 1.14 (0.85-1.17); PROTIME 14.2 SECONDS (11.6-15.0)
[2018-01-19 11:36] VITALS: BP 137/86
[2018-01-19 15:30] VITALS: BP 115/73
[2018-01-19 20:00] VITALS: BP 122/64
[2018-01-20 05:28] VITALS: BP 115/67
[2018-01-20 06:56] LABS: BASOPHILS 0.3 % (0-2); EOSINOPHILS 2.7 % (0-7); HEMATOCRIT 28.2 % (42.0-54.0); HEMOGLOBIN 9.2 g/dL (13.5-17.5); IMMATURE GRANULOCYTES 0.6 % (0-5); LYMPHOCYTES 12.6 % (15-50); MCH 31.4 pg (26.0-34.0); MCHC 32.6 g/dL (31.0-37.0); MCV 96.2 fL (80.0-100.0); MEAN PLATELET VOLUME 9.5 fL (7.4-10.4); MONOCYTES 10.3 % (2-11); NEUTROPHILS 73.5 % (40-80); PLATELET COUNT 404 10x3/uL (130-400); RBC 2.93 10x6/uL (4.20-6.10); RDW 13.9 % (11.5-14.5)
[2018-01-20 07:09] LABS: CARBON DIOXIDE 27.6 mmol/L (21.0-32.0); CHLORIDE - SERUM 103 mmol/L (98-107); GLUCOSE 119 mg/dL (74-106); POTASSIUM - SERUM 3.5 mmol/L (3.5-5.1); SODIUM 140 mmol/L (136-145)
[2018-01-20 07:10] LABS: CALC OSMOLALITY 275 mosm/kg (275-300); CREATININE - SERUM 0.7 mg/dL (0.6-1.3); UREA NITROGEN 2 mg/dL (7-18); eGFR NON AFRICAN AMERICAN > 90 mL/min (90-120)
[2018-01-20 10:20] VITALS: BP 138/68
[2018-01-20 15:20] VITALS: BP 132/79
[2018-01-20 21:37] VITALS: BP 124/70
[2018-01-21] VITALS: BP 117/66
[2018-01-21 05:42] LABS: BASOPHILS 0.2 % (0-2); EOSINOPHILS 3.1 % (0-7); HEMATOCRIT 27.7 % (42.0-54.0); IMMATURE GRANULOCYTES 0.6 % (0-5); LYMPHOCYTES 14.7 % (15-50); MCH 31.3 pg (26.0-34.0); MCHC 32.5 g/dL (31.0-37.0); MCV 96.2 fL (80.0-100.0); MEAN PLATELET VOLUME 9.7 fL (7.4-10.4); MONOCYTES 11.6 % (2-11); NEUTROPHILS 69.8 % (40-80); PLATELET COUNT 403 10x3/uL (130-400); RBC 2.88 10x6/uL (4.20-6.10); RDW 14.1 % (11.5-14.5); WBC 8.1 10x3/uL (4.8-10.8)
[2018-01-21 05:51] LABS: CALC OSMOLALITY 267 mosm/kg (275-300); CALCIUM 7.9 mg/dL (8.5-10.1); CARBON DIOXIDE 29.5 mmol/L (21.0-32.0); CHLORIDE - SERUM 101 mmol/L (98-107); CREATININE - SERUM 0.7 mg/dL (0.6-1.3); GLUCOSE 93 mg/dL (74-106); POTASSIUM - SERUM 3.4 mmol/L (3.5-5.1); SODIUM 136 mmol/L (136-145); UREA NITROGEN 2 mg/dL (7-18); eGFR NON AFRICAN AMERICAN > 90 mL/min (90-120)
[2018-01-21 06:08] VITALS: BP 116/68
[2018-01-21 08:06] VITALS: BP 126/72
[2018-01-21 12:52] VITALS: BP 112/66
[2018-01-21 17:20] VITALS: BP 107/66
[2018-01-21 20:56] VITALS: BP 118/65
[2018-01-22 00:51] VITALS: BP 118/58
[2018-01-22 05:09] VITALS: BP 129/65
[2018-01-22 05:19] LABS: BASOPHILS 0.3 % (0-2); EOSINOPHILS 3.2 % (0-7); HEMATOCRIT 28.4 % (42.0-54.0); HEMOGLOBIN 9.3 g/dL (13.5-17.5); IMMATURE GRANULOCYTES 0.7 % (0-5); LYMPHOCYTES 18.3 % (15-50); MCH 31.1 pg (26.0-34.0); MCHC 32.7 g/dL (31.0-37.0); MEAN PLATELET VOLUME 9.4 fL (7.4-10.4); MONOCYTES 13.8 % (2-11); NEUTROPHILS 63.7 % (40-80); PLATELET COUNT 390 10x3/uL (130-400); RBC 2.99 10x6/uL (4.20-6.10); RDW 14.1 % (11.5-14.5); WBC 7.5 10x3/uL (4.8-10.8)
[2018-01-22 05:34] LABS: CALC OSMOLALITY 275 mosm/kg (275-300); CALCIUM 7.9 mg/dL (8.5-10.1); CARBON DIOXIDE 32.2 mmol/L (21.0-32.0); CHLORIDE - SERUM 103 mmol/L (98-107); CREATININE - SERUM 0.7 mg/dL (0.6-1.3); GLUCOSE 101 mg/dL (74-106); POTASSIUM - SERUM 3.5 mmol/L (3.5-5.1); SODIUM 140 mmol/L (136-145); eGFR NON AFRICAN AMERICAN > 90 mL/min (90-120)
[2018-01-22 05:55] LABS: UREA NITROGEN 3 mg/dL (7-18)
[2018-01-22 12:49] VITALS: BP 122/72
[2018-01-22 17:47] VITALS: BP 122/69
[2018-01-22 20:50] VITALS: BP 127/72
[2018-01-23 05:27] VITALS: BP 102/64
[2018-01-23 05:49] LABS: BASOPHILS 0.1 % (0-2); EOSINOPHILS 3.5 % (0-7); HEMATOCRIT 28.5 % (42.0-54.0); HEMOGLOBIN 9.2 g/dL (13.5-17.5); IMMATURE GRANULOCYTES 0.9 % (0-5); LYMPHOCYTES 15.7 % (15-50); MCH 30.8 pg (26.0-34.0); MCHC 32.3 g/dL (31.0-37.0); MCV 95.3 fL (80.0-100.0); MEAN PLATELET VOLUME 9.2 fL (7.4-10.4); MONOCYTES 13.4 % (2-11); NEUTROPHILS 66.4 % (40-80); PLATELET COUNT 379 10x3/uL (130-400); RBC 2.99 10x6/uL (4.20-6.10); RDW 13.8 % (11.5-14.5); WBC 6.9 10x3/uL (4.8-10.8)
[2018-01-23 06:13] LABS: CALC OSMOLALITY 281 mosm/kg (275-300); CARBON DIOXIDE 32.5 mmol/L (21.0-32.0); CHLORIDE - SERUM 105 mmol/L (98-107); CREATININE - SERUM 0.6 mg/dL (0.6-1.3); GLUCOSE 97 mg/dL (74-106); POTASSIUM - SERUM 3.2 mmol/L (3.5-5.1); SODIUM 143 mmol/L (136-145); eGFR NON AFRICAN AMERICAN > 90 mL/min (90-120)
[2018-01-23 06:14] LABS: UREA NITROGEN 4 mg/dL (7-18)
[2018-01-23 12:37] VITALS: BP 104/69
[2018-01-23 17:10] VITALS: BP 133/71
[2018-01-23 22:54] VITALS: BP 119/60
[2018-01-24 05:09] VITALS: BP 110/60
[2018-01-24 05:54] LABS: BASOPHILS 0.3 % (0-2); EOSINOPHILS 3.7 % (0-7); HEMATOCRIT 28.1 % (42.0-54.0); IMMATURE GRANULOCYTES 0.8 % (0-5); LYMPHOCYTES 18.8 % (15-50); MCH 30.5 pg (26.0-34.0); MCV 95.3 fL (80.0-100.0); MEAN PLATELET VOLUME 9.2 fL (7.4-10.4); MONOCYTES 12.1 % (2-11); NEUTROPHILS 64.3 % (40-80); PLATELET COUNT 387 10x3/uL (130-400); RBC 2.95 10x6/uL (4.20-6.10); RDW 13.7 % (11.5-14.5); WBC 7.3 10x3/uL (4.8-10.8)
[2018-01-24 06:28] LABS: ALBUMIN 1.7 g/dL (3.4-5.0); ALKALINE PHOSPHATASE 68 U/L (46-116); ALT (SGPT) 47 U/L (10-68); BILIRUBIN - TOTAL 0.24 mg/dL (0.2-1.3); CALC OSMOLALITY 278 mosm/kg (275-300); CARBON DIOXIDE 33.7 mmol/L (21.0-32.0); CHLORIDE - SERUM 103 mmol/L (98-107); CREATININE - SERUM 0.7 mg/dL (0.6-1.3); GLUCOSE 105 mg/dL (74-106); MAGNESIUM - SERUM 1.9 mg/dL (1.8-2.4); PHOSPHOROUS 5.9 mg/dL (2.5-4.9); POTASSIUM - SERUM 3.1 mmol/L (3.5-5.1); PROTEIN - SERUM 6.1 g/dL (6.4-8.2); SODIUM 142 mmol/L (136-145); eGFR NON AFRICAN AMERICAN > 90 mL/min (90-120)
[2018-01-24 06:31] LABS: UREA NITROGEN 2 mg/dL (7-18)
[2018-01-24 08:00] VITALS: BP 119/63
[2018-01-24 08:33] LABS: CALC OSMOLALITY 279 mosm/kg (275-300); CALCIUM 8.4 mg/dL (8.5-10.1); CARBON DIOXIDE 32.6 mmol/L (21.0-32.0); CHLORIDE - SERUM 103 mmol/L (98-107); CREATININE - SERUM 0.7 mg/dL (0.6-1.3); GLUCOSE 96 mg/dL (74-106); POTASSIUM - SERUM 3.3 mmol/L (3.5-5.1); SODIUM 142 mmol/L (136-145); eGFR NON AFRICAN AMERICAN > 90 mL/min (90-120)
[2018-01-24 08:34] LABS: APTT 32.2 SECONDS (22.8-39.4); INR 1.18 (0.85-1.17); PROTIME 14.5 SECONDS (11.6-15.0); UREA NITROGEN 3 mg/dL (7-18)
[2018-01-24 13:06] VITALS: BP 117/71
[2018-01-24 16:30] VITALS: BP 123/61
[2018-01-24 20:00] VITALS: BP 130/75
[2018-01-25 04:00] VITALS: BP 120/72
[2018-01-25 05:54] LABS: BASOPHILS 0.3 % (0-2); EOSINOPHILS 5.1 % (0-7); HEMATOCRIT 29.8 % (42.0-54.0); HEMOGLOBIN 9.6 g/dL (13.5-17.5); LYMPHOCYTES 19.3 % (15-50); MCH 30.9 pg (26.0-34.0); MCHC 32.2 g/dL (31.0-37.0); MCV 95.8 fL (80.0-100.0); MONOCYTES 11.5 % (2-11); NEUTROPHILS 62.8 % (40-80); PLATELET COUNT 399 10x3/uL (130-400); RBC 3.11 10x6/uL (4.20-6.10); RDW 13.7 % (11.5-14.5); WBC 6.7 10x3/uL (4.8-10.8)
[2018-01-25 06:16] LABS: CALC OSMOLALITY 275 mosm/kg (275-300); CALCIUM 8.2 mg/dL (8.5-10.1); CARBON DIOXIDE 32.2 mmol/L (21.0-32.0); CHLORIDE - SERUM 102 mmol/L (98-107); CREATININE - SERUM 0.8 mg/dL (0.6-1.3); GLUCOSE 95 mg/dL (74-106); POTASSIUM - SERUM 3.4 mmol/L (3.5-5.1); SODIUM 140 mmol/L (136-145); UREA NITROGEN 3 mg/dL (7-18); eGFR NON AFRICAN AMERICAN > 90 mL/min (90-120)
[2018-01-25 09:23] VITALS: BP 120/78
[2018-01-25] MEDS ORDERED: DIFLUCAN100 MG PO (11:28)
[2018-01-25] MEDS ORDERED: NORCO 10-325 TA1 TAB PO (11:28)
[2018-01-25] MEDS ORDERED: AUGMENTIN 875-11 TAB PO (11:28)
[2018-01-25 11:36] VITALS: BP 119/76; BP 150/55
== END 2018-01-25 14:10 | disposition home or self-care (01) | DRG 392 ==
LOC: EDBD 11:42 → D.ER 11:42 → D.MS 14:43 → D.EDHOLD 14:43 → D.MS 17:23
PROVIDERS: Family Medicine; Radiology Diagnostic Radiology; Radiology Vascular & Interventional Radiology; Surgery
PROC: 0W9G40Z Drainage of Peritoneal Cavity with Drainage Device, Percutaneous Endoscopic Approach (ICD-10-PCS; principal; 2018-01-11 14:15)
PROC: 0W9G30Z Drainage of Peritoneal Cavity with Drainage Device, Percutaneous Approach (ICD-10-PCS; 2018-01-19)
PROC: BD13ZZZ Fluoroscopy of Small Bowel (ICD-10-PCS; 2018-01-24)
DX: K57.20 Diverticulitis of large intestine with perforation and abscess without bleeding (principal); K63.2 Fistula of intestine; G47.00 Insomnia, unspecified; E78.00 Pure hypercholesterolemia, unspecified; R00.0 Tachycardia, unspecified; I10 Essential (primary) hypertension; I25.10 Atherosclerotic heart disease of native coronary artery without angina pectoris; K66.0 Peritoneal adhesions (postprocedural) (postinfection); B96.20 Unspecified Escherichia coli [E. coli] as the cause of diseases classified elsewhere; B95.2 Enterococcus as the cause of diseases classified elsewhere; B95.7 Other staphylococcus as the cause of diseases classified elsewhere

== ENCOUNTER → 2018-03-16 11:25 | Outpatient (CLI) | payer MEDICAID ==
[2018-01-18 19:48] VITALS: BMI 39.5
[~2018-03-16 11:25] MED LIST: ATARAX 25 MG TA25 MG PO; AUGMENTIN 875-11 TAB PO; AZELASTINE137 MCG/0. NASAL; BUSPAR10 MG PO; DIFLUCAN100 MG PO; FOLIC ACID1 MG PO; LIPITOR20 MG PO; NORCO 10-325 TA1 TAB PO; RANITIDINE HCL150 M1 PO; SEROQUEL300 MG PO; VITAMIN B-150 MG PO; ZYLOPRIM300 MG PO
== END | disposition home or self-care (01) ==
LOC: D.CT 11:00
DX: K57.20 Diverticulitis of large intestine with perforation and abscess without bleeding (principal)

== ENCOUNTER 2018-03-29 09:02 | Inpatient (IN) | payer MEDICAID ==
[~2018-03-29] VITALS: Ht 182.9 cm; Wt 115.7 kg
--- NOTE | ~2018-03-29 | MORECARE ---
CASE MANAGEMENT DISCHARGE SUMMARY PATIENT: ZAC BHARDWAJ UNIT: [id number] ADM DATE: 03/29/18 AGE: 38 : [birth year] SEX: M ROOM/BED: D.2230 AUTHOR: IDALIA HWANG PHYSICIAN: REFERRING PHYSICIAN: FELI BAÑUELOS MD DATE OF SERVICE: 03/30/18 Discharge Plan Patient Name: ZAC BHARDWAJ [facility] [facility] 1980 Planned Disposition: Home Anticipated Discharge Date: Discharge Date: Expected LOS: Initial Reviewer: [email or web address] Initial Review Date: 03/30/2018 Generated: 03/30/18 5:15 pm DCPIA - Discharge Planning Initial Assessment Updated by [email or web address]: Kusum Chiang on 03/30/18 4:13 pm * Is the patient Alert and Oriented? Yes * How many steps to enter\exit or inside your home? 4/0 * PCP Dr. Rowe in [place] * [facility] in [place] * Preadmission Environment Home with Family * ADLs Independent * Equipment CPAP * List name and contact numbers for known caregivers / representatives who currently or will assist patient after discharge: Nidia siddiqui?e - [phone] * Verbal permission to speak to the caregivers and representatives has been obtained from the patient. Yes * Community resources currently utilized None * Please name any agencies selected above. DME company for CPAP is [employer] * Additional services required to return to the preadmission environment? No * Can the patient safely return to the preadmission environment? Yes * Has this patient been hospitalized within the prior 30 days at any hospital? No External Providers External Provider: [facility] Next Contact Date: Service Request Date: Service Type: Resolution: Reviewer: Comments: Patient Name: ZAC BHARDWAJ Page [phone] at 1614 All edits/amendments must be made on the electronic document DICTATION DATE: 03/30/18 1615 BINDERY PRODUCTION MANAGER: JASON 03/30/18 1615 RPT#: [id number] DC DATE: STATUS: ADM IN [facility] [address] [place] [address] END OF REPORT
--- NOTE | ~2018-03-29 | OP ---
PATIENT NAME: ZAC BHARDWAJ MEDICAL RECORD: [id number] :[birth year] LOCATION:D.MS [id number] ADMISSION DATE:03/29/18 SURGEON: CASTILLO BAÑUELOS MD DATE OF OPERATION: 03/29/2018 PREOPERATIVE DIAGNOSES: 1. Diverticulitis. 2. Hypertension. 3. Anxiety. 4. Gout. POSTOPERATIVE DIAGNOSES: 1. Diverticulitis. 2. Hypertension. 3. Anxiety. 4. Gout. PROCEDURE: 1. Hand-assisted laparoscopic sigmoid colectomy. 2. Mobilization of splenic flexure laparoscopically. 3. Laparoscopic lysis of adhesions. SURGEON: Castillo Bañuelos MD BRAKE HOLDER: Genie Boston APRN REPORT OF PROCEDURE: The patient's abdomen was prepped and draped in sterile fashion. A skin incision was made in the lower midline and electrocautery was used to dissect through the subcutaneous tissues and fascia until we entered the abdominal cavity. Once inside, a Gelport was inserted with a 5-mm trocar within it. Using this, we were able to place a 5-mm trocar in the left lateral abdomen and a 12-mm trocar just anterior to the right anterior superior iliac crest. The patient's sigmoid colon was very firm and inflamed. There were a lot of inflammatory adhesions present through the left pericolic gutter and left side of the abdomen. Most of these were thin adhesions that were taken down carefully with blunt dissection. There were some adhesions of the small bowel to the anterior abdominal wall and to each other, which had to be taken down using either sharp dissection or electrocautery. Once we had most of these adhesions freed up and we were able to take down the white line of Toldt up the left lateral colon, this was continued down to the sigmoid colon and its pelvic attachments. As we got down into the pelvis, the rectum appeared to be normal in caliber with no inflammation. A window was made at the base of the colon through the mesocolon at its superior aspect. Using a 60 blue load Endo-CORINNE stapler, we came across this section of the colon. The mesentery was then taken down with multiple fires of a white load Endo-CORINNE stapler. We eventually were able to eviscerate the sigmoid colon through the wound protector. The remaining vasculature was tied off it with a pounw-wjv-cjo technique using 3-0 silk ties. The proximal sigmoid colon was then transected using electrocautery and this portion of the bowel was sent off for permanent specimen. A 2-0 Prolene was used to make a pursestring on the distal aspect of the colon and a 29 EEA anvil was inserted. At this point, the pursestring was tied down tightly around the anvil. We did not have enough length to easily reach the pelvis, so laparoscopically we had to mobilize the splenic flexure. In order to facilitate this, we had to put another 5-mm trocar in the left lateral abdomen. Once we freed up the sigmoid flexure then the bowel would easily rest in the pelvis for OPERATIVE REPORT [id number] ZAC BHARDWAJ anastomosis. The multiple anal dilators were inserted followed by the 29 EEA stapler. An end-to-end anastomosis was performed of the proximal rectum to the distal descending colon. At the conclusion of this, we had two complete rings of tissue in the stapler. We then checked the staple line under water by instilling air through the rectum and there was no sign of a leak. We then oversewed the staple line using Lemberted 3-0 silks. The abdomen was then irrigated out thoroughly with normal saline. 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 There was no sign of any bile leakage anywhere throughout the small bowel. I again inspected the splenic flexure one last time and saw no evidence of injury or bleeding. The spleen appeared to have a small capsular tear at its most inferior aspect, but there was no sign of any active bleeding from this. We irrigated out this area of the abdomen vigorously and again saw no sign of bleeding. At this point, the ports and insufflation were then removed. The midline fascia was closed with running #1 loop PDS times 2. The skin incisions were then irrigated out and closed with rosi. COMPLICATIONS: None. CONDITION: Stable. ANESTHESIA: General endotracheal and local. BLOOD LOSS: 100 mL. TRANSINT:[id number] Voice Confirmation ID: [id number] DOCUMENT ID: [id number] CASTILLO BAÑUELOS MD at 0849 CC: [id number] DICTATION DATE: 03/29/18 1502 MANAGER DAIRY: 03/29/18 1604 ADM IN [facility] [address] [id number]
--- NOTE | ~2018-03-29 | MORECARE ---
CASE MANAGEMENT DISCHARGE SUMMARY PATIENT: ZAC BHARDWAJ UNIT: [id number] ADM DATE: 03/29/18 AGE: 38 : [birth year] SEX: M ROOM/BED: D.2230 AUTHOR: JAIDEN,DOC PHYSICIAN: REFERRING PHYSICIAN: FELI BAÑUELOS MD DATE OF SERVICE: 03/30/18 Discharge Plan Patient Name: ZAC BHARDWAJ Facility: [facility]:[place] : 1980 Planned Disposition: Home Anticipated Discharge Date: Discharge Date: Expected LOS: Initial Reviewer: [email or web address] Initial Review Date: 03/30/2018 Generated: 03/30/18 5:30 pm Comments DCP- Discharge Planning Updated by [email or web address]: Kusum Chiang on 03/30/18 3:[address] Patient Name: ZAC BHARDWAJ Admission Status: Elective Accout number: [id number] Admission Date: 03-29-2018 : 1980 Admission Diagnosis: Attending: FELI BAÑUELOS Current LOS: 1 Anticipated DC Date: Planned Disposition: Home Primary Insurance: MEDICAID [place] Discharge Planning Comments: CM met with patient to discuss discharge planning, he is alone in the room. He states he is independent with all ADL's. States he is living with his mother and fianc?e. States they drive him where he needs to go and will take him home on discharge. He states the only DME he would like is a cane for stability. I called [facility] and faxed clinical for a cane. He declines home health. States his mother and fianc?e are nurses and can assist him at home if needed. CM will continue to follow and assist with discharge planning/needs. Log Stacker Operator: Kusum Chiang DCPIA - Discharge Planning Initial Assessment Updated by [email or web address]: Kusum Chiang on 03/30/18 4:13 pm * Is the patient Alert and Oriented? Yes * How many steps to enter\exit or inside your home? 4/0 * PCP Dr. Rowe in [place] * [facility]acy [facility] in [place] * Preadmission Environment Home with Family * ADLs Independent * Equipment CPAP * List name and contact numbers for known caregivers / representatives who currently or will assist patient after discharge: Nidia siddiqui?e - [phone] * Verbal permission to speak to the caregivers and representatives has been obtained from the patient. Yes * Community resources currently utilized None * Please name any agencies selected above. DME company for CPAP is [employer] * Additional services required to return to the preadmission environment? No * Can the patient safely return to the preadmission environment? Yes * Has this patient been hospitalized within the prior 30 days at any hospital? No Last DP export: 03/30/18 3:15 Patient Name: ZAC BHARDWAJ Page [id number] at 1630 All edits/amendments must be made on the electronic document DICTATION DATE: 03/30/181628 ARMATURE AND ROTOR WINDER: JASON 03/30/181628 RPT#: [id number] DC DATE: STATUS: ADM IN [facility] [address] [place] [address] END OF REPORT
--- NOTE | ~2018-03-29 | MORECARE ---
CASE MANAGEMENT DISCHARGE SUMMARY PATIENT: ZAC BHARDWAJ UNIT: [id number] ADM DATE: 03/29/18 AGE: 38 : [birth year] SEX: M ROOM/BED: D.2230 AUTHOR: IDALIA HWANG PHYSICIAN: REFERRING PHYSICIAN: FELI BAÑUELOS MD DATE OF SERVICE: 04/01/18 Discharge Plan Patient Name: ZAC BHARDWAJ Facility: [facility]:[place] : 1980 Planned Disposition: Home Anticipated Discharge Date: Discharge Date: Expected LOS: Initial Reviewer: [email or web address] Initial Review Date: 03/30/2018 Generated: 04/01/18 11:02 am Comments DCP- Discharge Planning Updated by [email or web address]: Kusum Chiang on 04/01/18 8:[address] Patient Name: ZAC BHARDWAJ Encounter No: [id number] : 1980 Primary Insurance: MEDICAID [place] Anticipated DC Date: Planned Disposition: Home External Planned Provider: : DCP follow-up note: Patient in agreement with discharge plan. He has his cane in the room. States he has no other needs. No changes to plan. Case management will follow and assist as needed. Kusum Chiang DCP- Discharge Planning Updated by [email or web address]: Kusum Chiang on 03/30/18 3:[address] Patient Name: ZAC BHARDWAJ Admission Status: Elective Accout number: [id number] Admission Date: 03-29-2018 : 1980 Admission Diagnosis: Attending: FELI BAÑUELOS Current LOS: 1 Anticipated DC Date: Planned Disposition: Home Primary Insurance: MEDICAID [place] Discharge Planning Comments: CM met with patient to discuss discharge planning, he is alone in the room. He states he is independent with all ADL's. States he is living with his mother and fianc?e. States they drive him where he needs to go and will take him home on discharge. He states the only DME he would like is a cane for stability. I called [facility] and faxed clinical for a cane. He declines home health. States his mother and fianc?e are nurses and can assist him at home if needed. CM will continue to follow and assist with discharge planning/needs. Associate Professor Of Biostatistics: Kusum Chiang DCPIA - Discharge Planning Initial Assessment Updated by [email or web address]: Kusum Chiang on 03/30/18 4:13 pm * Is the patient Alert and Oriented? Yes * How many steps to enter\exit or inside your home? 4/0 * PCP Dr. Rowe in [place] * [facility] in [place] * Preadmission Environment Home with Family * ADLs Independent * Equipment CPAP * List name and contact numbers for known caregivers / representatives who currently or will assist patient after discharge: Nidia siddiqui?e - [phone] * Verbal permission to speak to the caregivers and representatives has been obtained from the patient. Yes * Community resources currently utilized None * Please name any agencies selected above. DME company for CPAP is [employer] * Additional services required to return to the preadmission environment? No * Can the patient safely return to the preadmission environment? Yes * Has this patient been hospitalized within the prior 30 days at any hospital? No Last DP export: 03/30/18 3:30 Patient Name: ZAC BHARDWAJ Page 50812 at 1002 All edits/amendments must be made on the electronic document DICTATION DATE: 04/01/18 1002 LOCAL SALES ASSOCIATE: JASON 04/01/18 1002 RPT#: [id number] DC DATE: STATUS: ADM IN [facility] [address] [place] [address] END OF REPORT
[~2018-03-29 09:02] MED LIST changes: +NASACORT10.8 ML NASAL; +PROPRANOLOL HCL20 MG PO; +SEROQUEL100 MG PO; +ZOLOFT100 MG PO
[2018-03-29 09:33] VITALS: BP 113/76; BMI 34.6
[2018-03-29 16:16] VITALS: BP 131/72
[2018-03-29 17:25] VITALS: BP 131/72; BMI 34.6
[2018-03-29 20:00] VITALS: BP 102/74
[2018-03-29 20:10] LABS: BASOPHILS 0 % (0-2); EOSINOPHILS 0 % (0-7); HEMATOCRIT 39.4 % (42.0-54.0); HEMOGLOBIN 13.5 g/dL (13.5-17.5); IMMATURE GRANULOCYTES 0.1 % (0-5); LYMPHOCYTES 4.9 % (15-50); MCH 32.1 pg (26.0-34.0); MCHC 34.3 g/dL (31.0-37.0); MCV 93.8 fL (80.0-100.0); MONOCYTES 2.7 % (2-11); NEUTROPHILS 92.3 % (40-80); RDW 14.1 % (11.5-14.5); WBC 13.4 10x3/uL (4.8-10.8)
[2018-03-29 20:38] LABS: CALC OSMOLALITY 278 mosm/kg (275-300); CALCIUM 8.8 mg/dL (8.5-10.1); CARBON DIOXIDE 23.3 mmol/L (21.0-32.0); CHLORIDE - SERUM 103 mmol/L (98-107); GLUCOSE 140 mg/dL (74-106); POTASSIUM - SERUM 4.2 mmol/L (3.5-5.1); SODIUM 139 mmol/L (136-145); UREA NITROGEN 11 mg/dL (7-18); eGFR NON AFRICAN AMERICAN 89 mL/min (90-120)
[2018-03-29 20:48] LABS: PLATELET COUNT 244 10x3/uL (130-400)
[2018-03-30] VITALS: BP 102/74
[2018-03-30 04:00] VITALS: BP 110/82
[2018-03-30 08:37] VITALS: BP 106/76
[2018-03-30 12:03] LABS: BASOPHILS 0.1 % (0-2); EOSINOPHILS 0.2 % (0-7); HEMATOCRIT 38.7 % (42.0-54.0); HEMOGLOBIN 13.2 g/dL (13.5-17.5); IMMATURE GRANULOCYTES 0.2 % (0-5); LYMPHOCYTES 9.5 % (15-50); MCHC 34.1 g/dL (31.0-37.0); MCV 93.7 fL (80.0-100.0); MEAN PLATELET VOLUME 9.9 fL (7.4-10.4); MONOCYTES 8.8 % (2-11); NEUTROPHILS 81.2 % (40-80); PLATELET COUNT 242 10x3/uL (130-400); RBC 4.13 10x6/uL (4.20-6.10); RDW 14.4 % (11.5-14.5); WBC 14.4 10x3/uL (4.8-10.8)
[2018-03-30 12:13] LABS: CALC OSMOLALITY 272 mosm/kg (275-300); CALCIUM 8.4 mg/dL (8.5-10.1); CARBON DIOXIDE 24.4 mmol/L (21.0-32.0); CHLORIDE - SERUM 102 mmol/L (98-107); CREATININE - SERUM 0.8 mg/dL (0.6-1.3); GLUCOSE 102 mg/dL (74-106); POTASSIUM - SERUM 3.8 mmol/L (3.5-5.1); SODIUM 137 mmol/L (136-145); UREA NITROGEN 9 mg/dL (7-18); eGFR NON AFRICAN AMERICAN > 90 mL/min (90-120)
[2018-03-30 12:45] VITALS: BP 111/67
[2018-03-30 13:46] VITALS: Ht 182.9 cm; Wt 115.7 kg
[2018-03-30 16:18] VITALS: BP 105/69
[2018-03-30 20:54] VITALS: BP 94/65
[2018-03-31 01:05] VITALS: BP 100/59
[2018-03-31 05:15] LABS: BASOPHILS 0.1 % (0-2); EOSINOPHILS 1.8 % (0-7); HEMATOCRIT 33.7 % (42.0-54.0); HEMOGLOBIN 11.1 g/dL (13.5-17.5); IMMATURE GRANULOCYTES 0.3 % (0-5); LYMPHOCYTES 17.5 % (15-50); MCH 31.5 pg (26.0-34.0); MCHC 32.9 g/dL (31.0-37.0); MEAN PLATELET VOLUME 9.9 fL (7.4-10.4); MONOCYTES 13.2 % (2-11); NEUTROPHILS 67.1 % (40-80); RBC 3.52 10x6/uL (4.20-6.10); RDW 14.6 % (11.5-14.5)
[2018-03-31 05:21] LABS: MCV 95.7 fL (80.0-100.0); PLATELET COUNT 178 10x3/uL (130-400); WBC 7.9 10x3/uL (4.8-10.8)
[2018-03-31 05:31] LABS: CALC OSMOLALITY 276 mosm/kg (275-300); CALCIUM 8.4 mg/dL (8.5-10.1); CARBON DIOXIDE 24.1 mmol/L (21.0-32.0); CHLORIDE - SERUM 105 mmol/L (98-107); CREATININE - SERUM 0.9 mg/dL (0.6-1.3); GLUCOSE 91 mg/dL (74-106); POTASSIUM - SERUM 3.5 mmol/L (3.5-5.1); SODIUM 139 mmol/L (136-145); UREA NITROGEN 11 mg/dL (7-18); eGFR NON AFRICAN AMERICAN > 90 mL/min (90-120)
[2018-03-31 06:29] VITALS: BP 99/60
[2018-03-31 08:43] VITALS: BP 100/68
[2018-03-31 12:10] VITALS: BP 102/55
[2018-03-31 16:12] VITALS: BP 94/60
[2018-03-31 20:00] VITALS: BP 97/58
[2018-04-01 00:43] VITALS: BP 92/58
[2018-04-01 04:00] VITALS: BP 94/56
[2018-04-01 05:21] LABS: BASOPHILS 0.1 % (0-2); EOSINOPHILS 3.4 % (0-7); HEMATOCRIT 29.4 % (42.0-54.0); HEMOGLOBIN 9.7 g/dL (13.5-17.5); IMMATURE GRANULOCYTES 0.1 % (0-5); LYMPHOCYTES 17.2 % (15-50); MCH 31.7 pg (26.0-34.0); MCV 96.1 fL (80.0-100.0); MONOCYTES 10.5 % (2-11); NEUTROPHILS 68.7 % (40-80); PLATELET COUNT 189 10x3/uL (130-400); RBC 3.06 10x6/uL (4.20-6.10); RDW 14.2 % (11.5-14.5); WBC 7.5 10x3/uL (4.8-10.8)
[2018-04-01 05:49] LABS: CALC OSMOLALITY 272 mosm/kg (275-300); CALCIUM 8.3 mg/dL (8.5-10.1); CHLORIDE - SERUM 103 mmol/L (98-107); CREATININE - SERUM 0.9 mg/dL (0.6-1.3); GLUCOSE 108 mg/dL (74-106); POTASSIUM - SERUM 3.1 mmol/L (3.5-5.1); SODIUM 137 mmol/L (136-145); eGFR NON AFRICAN AMERICAN > 90 mL/min (90-120)
[2018-04-01 05:50] LABS: UREA NITROGEN 6 mg/dL (7-18)
[2018-04-01 08:34] VITALS: BP 94/57
[2018-04-01] MEDS ORDERED: NORCO-10 PO (08:49)
== END 2018-04-01 13:12 | disposition home or self-care (01) | DRG 331 ==
LOC: D.SDCHOLD 09:02 → D.MS 09:02 → D.SDCHOLD 09:30 → D.MS 15:44
PROVIDERS: Anesthesiology; Surgery
PROC: 0DTE0ZZ Resection of Large Intestine, Open Approach (ICD-10-PCS; principal; 2018-03-29 11:00)
DX: K57.32 Diverticulitis of large intestine without perforation or abscess without bleeding (principal); I10 Essential (primary) hypertension; F41.9 Anxiety disorder, unspecified